=== PATIENT | female | born 1945 | race Caucasian/White ===

== ENCOUNTER 2017-07-20 06:25 | Inpatient (IN) | payer MEDICARE ==
--- NOTE | 2017-07-15 17:02 | HP ---
PREOPERATIVE HISTORY AND PHYSICAL: DATE OF SURGERY: 07/20/17 DATE OF OFFICE VISIT: 07/14/17 ATTENDING SURGEON: Dr. Ritu Chapin * (DICTATED BY STACEY GOMEZ) PROCEDURE: Right total knee replacement. CHIEF COMPLAINT: Right knee pain. HISTORY OF PRESENT ILLNESS: Neyda is a 72-year-old female, who presents to the clinic for right knee pain due to end-stage osteoarthritis. She has failed conservative measures and has therefore agreed to undergo a right total knee replacement with Dr. Chapin on 07/20/17. PAST MEDICAL HISTORY: Spinal stenosis, AFib, morbid obesity, obstructive sleep apnea, rheumatoid arthritis, osteoarthritis, hypothyroidism, hypertension. PAST SURGICAL HISTORY: Hysterectomy, appendectomy, cholecystectomy, right thumb surgery, bilateral cataracts, spinal stenosis surgery, left ankle surgery , and left total knee replacement with Dr. Chapin. The patient reports some nausea with anesthesia, but otherwise no complications. MEDICATIONS: 1. Tramadol HCl 50 mg 1 by mouth every 6 hours as needed for pain. 2. Gabapentin 300 mg 1 by mouth at bedtime. 3. Gabapentin 100 mg 1 by mouth twice a day. 4. Centrum Silver 1 by mouth every day. 5. Propafenone HCl ER 1 by mouth twice a day. 6. Cozaar 100 mg 1 by mouth daily. 7. Calcium with vitamin D 600 mg 1 by mouth daily. 8. Vitamin D 2000 International Units 1 by mouth daily. 9. Amlodipine besylate 5 mg 1 by mouth daily. 10. Cinnamon 1000 mg 1 by mouth twice a day. 11. Levothyroxine sodium 112 mcg 1 by mouth every day. 12. Tums as needed. 13. Spironolactone 25 mg 1 by mouth every day. 14. CPAP to use at night. 15. Magnesium 500 mg 1 by mouth every night. 16. Aspirin 325 mg 1 by mouth daily. 17. Atenolol 25 mg 1 by mouth daily. ALLERGIES: No known drug allergies. FAMILY HISTORY: Positive for heart disease, cancer, and hypertension. SOCIAL HISTORY: She denies tobacco or alcohol use. 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 She lives with her . She is normally an independent ambulator. REVIEW OF SYSTEMS: A 14-point review of systems was reviewed with the patient. Positive for current complaint, hypothyroidism, and hypertension. Otherwise, negative. Denies fever, chills. Denies chest pain or shortness of breath. Denies history of bleeding disorders. Denies history of DVT or PE. PHYSICAL EXAMINATION GENERAL: A 72-year-old, well-developed, well-nourished female, in no acute distress. Alert and oriented x3. Appropriate mood and affect. VITAL SIGNS: Height 61.5, weight 251, pulse 66, blood pressure 142/59, BMI 46.7. HEENT: Normocephalic, atraumatic. PERRLA. Throat: Clear. NECK: Supple. PULMONARY: Lungs are clear to auscultation bilaterally. No wheezing, rhonchi, or rales. CARDIO: Regular rate and rhythm. S1, S2. No murmurs, gallops, or rubs. No edema. ABDOMEN: Positive bowel sounds, soft, and nontender. NEURO: Alert and oriented x3. Cranial nerves grossly intact. Sensation is intact to light touch. MUSCULOSKELETAL: Right lower extremity, skin is intact. No abrasions or open wounds. Moderate effusion. Range of motion 10 to 120 degrees. Patellofemoral crepitus. Stable varus and valgus stress. Stable Kashif. Calf soft, nontender. +5/5 strength with dorsiflexion and plantar flexion. +2 DP pulse. Sensation is intact to light touch distally. DIAGNOSTIC STUDIES: Multi-view x-rays of the right knee revealed severe end- stage osteoarthritis. IMPRESSION: Right knee severe end-stage osteoarthritis. PLAN: The patient is scheduled to undergo a right total knee replacement with Dr. Chapin on 07/20/17. She is cleared by Cardiology and her PCP. She will return to the office 10 to 14 days postop for followup and suture removal. Percocet was sent for postop pain management, Colace for constipation prevention , and Coumadin for DVT prophylaxis. STACEY GOMEZ [id number]/[facility] #: [id number] [facility]
[~2017-07-20 06:25] MED LIST: Buffered Lidocaine 0.9% SYRIN* 5 ML/SYR SYRINGE INTRADERM ONE; Famotidine IV* 10 MG/ML 2 ML (20 mg) IV ONE; Metoclopramide TAB* 10 MG PO ONE; Scopolamine 1.5 mg* PATCH TRANSDERM ONE
[2017-07-20] MEDS ORDERED: Buffered Lidocaine 0.9% SYRIN* 5 ML/SYR SYRINGE ONE (07:07)
[2017-07-20] MEDS ORDERED: Metoclopramide TAB* 10 MG ONE (07:07)
[2017-07-20] MEDS ORDERED: ceFAZolin 2 GM PREMIX (*) 2 GM/50 ML BAG IVPB ONE (07:07)
[2017-07-20] MEDS ORDERED: Famotidine IV* 10 MG/ML 2 ML (20 mg) ONE (07:07)
[2017-07-20] MEDS ORDERED: Scopolamine 1.5 mg* PATCH ONE (07:08)
[2017-07-20] MEDS ORDERED: fentaNYL* 50 MCG/ML 2 ML VIAL (100 MCG VIAL) ONE ×2 (07:11→09:27)
[2017-07-20] MEDS ORDERED: Midazolam* 1 MG/ML 5 ML VIAL (5 MG) ONE (07:11)
[2017-07-20] MEDS ORDERED: KETAMINE HCL* 50 MG/ML 10 ML VIAL ONE (07:11)
[2017-07-20] MEDS ORDERED: Ondansetron INJ* 2 MG/ML VIAL ONE (07:11)
[2017-07-20] MEDS ORDERED: Ketorolac INJ* 30 MG/ML 1 ML VIAL ONE (07:11)
[2017-07-20] MEDS ORDERED: Propofol* 10 MG/ML 20 ML BTL IV PUSH ONE (07:11)
[2017-07-20] MEDS ORDERED: Lidocaine 2% PF * 5 ML VIAL ONE (07:11)
[2017-07-20] MEDS ORDERED: Dexamethasone IV* 4 MG/ML 1 ML (4 MG) ONE (07:11)
[2017-07-20] MEDS ORDERED: ROPIVACAINE 5 MG/ML 30 ML BTL (0.5%) ONE (07:11)
[2017-07-20] MEDS ORDERED: Bupivacaine 0.5% SDV PF* 30 ML VIAL ONE (07:30)
[2017-07-20] MEDS ORDERED: EPHEDrine (Pressors)* 50 MG/ML VIAL ONE (08:19)
[2017-07-20] MEDS ORDERED: fentaNYL* 50 MCG/ML 2 ML VIAL (100 MCG VIAL) IV PRN (09:36)
[2017-07-20] MEDS ORDERED: HYDROmorphone INJ* 1 MG/ML CARPUJECT SYRINGE IV PRN (09:36)
[2017-07-20] MEDS ORDERED: PROCHLORPERAZINE INJ 5 MG/ML 2 ML VIAL IV PRN (09:36)
[2017-07-20] MEDS ORDERED: DiMENhydriNATE IV* 50 MG/ML VIAL IV PUSH PRN (09:36)
[2017-07-20] MEDS ORDERED: Morphine INJ* 2 MG/ML 1 ML CARPUJECT IV PRN (09:42)
[2017-07-20] MEDS ORDERED: oxyCODONE/Acetamin 5/325 MG* TAB PO PRN (09:42)
[2017-07-20] MEDS ORDERED: Bisacodyl SUPP* 10 MG SUPP PR PRN (09:42)
[2017-07-20] MEDS ORDERED: Polyethylene Glycol 3350* 17 GM PACKET PO PRN (09:42)
[2017-07-20] MEDS ORDERED: Ondansetron INJ* 2 MG/ML VIAL IV PRN (09:42)
[2017-07-20] MEDS ORDERED: oxyCODONE TAB* 5 MG TAB PO PRN (09:42)
[2017-07-20] MEDS ORDERED: diPHENhydraMINE IV* 50 MG/ML 1 ml VIAL (BENADRYL) IV PRN (09:42)
[2017-07-20] MEDS ORDERED: Temazepam CAP* 15 MG PO PRN (09:42)
[2017-07-20] MEDS ORDERED: HYDROmorphone INJ* 1 MG/ML CARPUJECT SYRINGE ONE (10:13)
--- NOTE | 2017-07-20 11:36 | RAD ---
HISTORY: Status post right knee replacement COMPARISONS: July 14, 2017 VIEWS: 2, Frontal and lateral views of the right knee FINDINGS: BONE DENSITY: Normal. BONES: The patient is status post right knee arthroplasty. There is no hardware failure or osteolysis. JOINTS: The patient is status post right knee arthroplasty. ALIGNMENT: There is no dislocation. SOFT TISSUES: Unremarkable. OTHER FINDINGS: There is post surgical change to the soft tissues. IMPRESSION: STATUS POST RIGHT KNEE ARTHROPLASTY.
[2017-07-20] MEDS: ceFAZolin 1 GM VIAL(*) 1 GM in NS 0.9% 50 ML* 50 ML IVPB SCH (16:28)
[2017-07-20] MEDS ORDERED: Warfarin TAB(*) 6 MG PO ONE (17:00)
--- NOTE | 2017-07-20 17:46 | CONS ---
CC: Dr. Chapin; Dr. Thompson CONSULTATION REPORT: DATE OF CONSULT: 07/20/17 PHYSICIAN REQUESTING CONSULT: Dr. Ritu Chapin. PRIMARY CARE PHYSICIAN: Dr. Marlo Thompson. ATTENDING PHYSICIAN: Dr. Kelly Anderson (report dictated by Natasha Sorenson NP) REASON FOR CONSULT: Medical comanagement. HISTORY OF PRESENT ILLNESS: Ms. Pruitt is a 72-year-old female with past medical history significant for atrial fibrillation, hypertension, obstructive sleep apnea, who underwent an elective right total knee replacement with Dr. Ritu Chapin on 07/20/17. The patient states that she has been in a good state of health leading up to the surgery. The patient states she is normally in sinus rhythm and only takes aspirin for anticoagulation. The patient states her blood pressure has been controlled. Hospitalists were asked to assist the comanagement of the patient during her hospitalization. PAST MEDICAL HISTORY: Spinal stenosis, AFib, morbid obesity, obstructive sleep apnea, rheumatoid arthritis, osteoarthritis, hypothyroidism, hypertension. PAST SURGICAL HISTORY: Hysterectomy, appendectomy, cholecystectomy, bilateral cataracts, spinal stenosis surgery, left ankle surgery, and left total knee replacement with Dr. Chapin. HOME MEDICATIONS: 1. Tramadol 50 mg oral every 6 hours as needed for pain. 2. Neurontin 300 mg oral at bedtime. 3. Neurontin 100 mg oral twice daily. 4. Centrum Silver 1 by mouth daily. 5. Propafenone 225 mg oral twice daily. 6. Cozaar 100 mg oral daily. 7. Calcium with vitamin D 600 mg oral daily. 8. Vitamin D 2000 International Units oral daily. 9. Norvasc 5 mg oral daily. 10. Cinnamon 1000 mg oral twice daily. 11. Synthroid 112 mcg oral daily. 12. Tums as needed. 13. Spironolactone 25 mg oral daily. 14. CPAP at night. 15. Magnesium 500 mg oral at bedtime. 16. Aspirin 325 mg oral daily. 17. Atenolol 25 mg oral daily. ALLERGIES: No known drug allergies. FAMILY HISTORY: The patient has a positive family history for heart disease, cancer, and hypertension. SOCIAL HISTORY: The patient denies any tobacco or alcohol use. 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 REVIEW OF SYSTEMS: I performed a 14-point review of systems, all the pertinent positives and negatives are mentioned in the history of present illness. The remaining review of systems is negative. PHYSICAL EXAM: Vital Signs: Temperature 98.7, heart rate 57, respiratory rate 17, blood pressure 149/ , oxygen saturation 98%. Appearance: The patient is 72- year-old female lying in bed, in no apparent distress. Head, Eyes, Ears , Nose, and Throat: Normocephalic/atraumatic. Pupils were equal and reactive to light. Extraocular movements were intact. Neck: Neck was supple. Cardiac: S1 and S2 were crisp. There were no murmurs, rubs, or gallops heard. Lungs: There was no accessory muscle use and lungs were clear to auscultation bilaterally. Abdomen was soft, nontender, and nondistended. There were decreased bowel sounds in all quadrants. Neuro: The patient was alert and oriented x3. Cranial nerves II through XII were intact. The patient moves all extremities. Lower extremities were intact to light touch. Musculoskeletal: The patient exhibited equal strength in all extremities. I did not assess the full strength of the right lower extremity due to the recent knee surgery. Psych: The patient is alert and oriented x3. DIAGNOSTIC STUDIES/LAB DATA: Preop laboratory data showed sodium 134, potassium 4.6, chloride 99, CO2 31, BUN is 13, creatinine 1.6, glucose 83. Bilirubin 1.1. Liver function tests within normal limits. White blood cell count 6.5, hemoglobin 13, platelet count 219. INR 0.86, PTT 34.7. Postoperative knee x-ray from 07/20/17, status post right knee arthroplasty. IMPRESSION: This is a 72-year-old female with past medical history significant for paroxysmal atrial fibrillation, hypertension, obstructive sleep apnea, who underwent an elective right total knee replacement with Dr. Chapin. Hospitalists were asked to assist with the management of the patient's comorbidities. ASSESSMENT AND PLAN: 1. Postop day 0 right total knee replacement. Management will be per Orthopedic Surgery. The patient has multiple medications for pain control and will have physical therapy and occupational therapy starting tomorrow morning. The patient will have a Chavarria catheter which will be discontinued on postop day 1. Hemoglobin and hematocrit will be checked daily. 2. Paroxysmal atrial fibrillation. Aspirin is currently being held as the patient will be on warfarin postoperatively for DVT prophylaxis. Aspirin should be held until the patient is off warfarin and then this can be restarted. The patient remains in normal sinus rhythm and should continue on her Rythmol as well as atenolol during the hospitalization. Telemetry monitoring is not necessary at this point. 3. Hypertension. The patient's blood pressure is starting to creep up postoperatively. Her Atenolol and Norvasc will be restarted tonight with hold parameters and Cozaar will be started in the morning with hold parameters. Spironolactone will be held as she is receiving fluid and this can be restarted at discharge. 4. Hypothyroidism. Synthroid will continue. 5. Obstructive sleep apnea. The patient has brought in her CPAP to wear at night. 6. Chronic nerve pain. Neurontin will continue and the patient has other narcotics ordered, so tramadol will be held. 7. Fluids, electrolytes, and nutrition. The patient is on a regular diet, which will be advanced. 8. DVT prophylaxis. Will be per Orthopedic Surgery. She is being started on Coumadin this evening. 9. Code status is full. TIME SPENT: Time for this consultation was 50 minutes, and 25 minutes was spent with the patient discussing medications, history, and events leading up to her elective surgery. Reviewed by NATASHA SORENSON NP 07/20/2017 2100 [id number]/[facility] #: [id number] CATHLEEN
[2017-07-20] MEDS ORDERED: amLODIPine TAB* 5 MG PO SCH ×2 (18:00)
[2017-07-20] MEDS ORDERED: Atenolol TAB* 50 MG PO SCH (18:00)
[2017-07-20] MEDS: CMC:OMEGA-3 FATTY ACIDS (NF) 1,000 MG CAP PO SCH (18:13)
[2017-07-20] MEDS: Magnesium Oxide TAB* 400 MG PO SCH (18:13)
[2017-07-20] MEDS: PROPAFENONE 225 MG PO SCH (21:36)
[2017-07-20] MEDS: Magnesium Hydroxide LIQ* 30 ML UDC PO SCH (21:36)
[2017-07-20] MEDS: oxyCODONE/Acetamin 5/325 MG* TAB PO PRN (21:36)
[2017-07-20] MEDS: Docusate CAP* 100 MG PO SCH (21:36)
[2017-07-20] MEDS: CINNAMON 1000 MG PO SCH (21:36)
--- NOTE | 2017-07-20 23:12 | OP ---
DATE OF OPERATION: 07/20/17 - ROOM #347 DATE OF : 43 SURGEON: Ritu Chapin MD. EARLY CHILDHOOD TEACHER ASSISTANT: STACEY Troy. Ms. Hebert did help throughout the procedure with preparation of the leg, wound retraction, manipulation of the knee and wound closure. ANESTHESIOLOGIST: Dr. Rodney. ANESTHESIA: General with adductor nerve block. PRE-OP DIAGNOSIS: Severe end-stage degenerative osteoarthritis of the right knee joint. POST-OP DIAGNOSIS: Severe end-stage degenerative osteoarthritis of the right knee joint. OPERATIVE PROCEDURE: Right total knee arthroplasty. COMPLICATIONS: None. ESTIMATED BLOOD LOSS: 200 cc. TOURNIQUET TIME: 54 minutes. SPECIMEN: Bone and cartilage from the right knee joint sent to pathology. HARDWARE USED: This is a cemented Delcid and Nephew total knee hardware. For the femur, a size 5 right narrow Oxinium femoral component. For the tibia, a size 4 right tibial baseplate. For the insert, an 11-mm posterior stabilized articular insert, size 3/4 and for the patella, a 32-mm, 3-peg all-poly patella. BRIEF HISTORY/INDICATION: Ms. Pruitt is a 72-year-old female with years of increasingly severe right knee pain. She failed conservative treatment with antiinflammatories, pain medication, intraarticular injection and physical therapy. Radiographs showed [id number] arthritis. She elected to undergo right total knee arthroplasty due to continued pain and decreased quality of life. Informed consent was obtained from the patient. She understood the risks of the surgery included but were not limited to bleeding, infection, damage to nearby structures, continued pain, need for further surgery, intraoperative fracture, nerve palsy, hardware failure or loosening, knee stiffness, loss of motion, stroke, heart attack, blood clot and . She wished to proceed. INTRAOPERATIVE FINDINGS: The patient was found to have severe end-stage arthritis with tricompartmental loss of cartilage. She had significant osteophyte formation around the patella and medial tibial plateau. DESCRIPTION OF PROCEDURE: Ms. Pruitt was identified in the preanesthesia unit. Her right lower extremity was marked as the correct operative side. Informed consent was signed and placed in the chart. The patient was taken to the operating room and placed under general anesthesia with an adductor nerve block. A Chavarria catheter was placed. Tourniquet was placed on the right thigh. Right lower extremity was prepped and draped in the usual sterile fashion. Pre-op time-out was made to correctly identify the patient's side and site. Appropriate perioperative antibiotics were given within 1 hour of incision. Tourniquet was inflated until the tourniquet time was 54 minutes. A 12-cm midline incision was made with a 10-blade and carried down to the extensor mechanism. A new 10-blade was used to make a medial parapatellar arthrotomy in the extensor mechanism. Patella was subluxed laterally. Electrocautery was used to subperiosteally elevate the soft tissue off the superomedial tibia to the midsagittal plane. The knee was flexed up. There was a minimal slip of ACL remaining. This was sharply released. The anterior horn of the lateral meniscus was sharply released. A drill was used to enter the distal femur. Intramedullary distal femoral cutting guide was pinned onto the distal femur. Oscillating saw was used to make the appropriate distal femoral cut. External rotation guide was pinned on the distal femur and the distal femur was sized to a size 5. A size 5 multi cutting jig was placed on the distal femur. Oscillating saw was used to make the appropriate 4 chamfer cuts. Next, the PCL was sharply released. The tibial was subluxed anteriorly. Extramedullary tibial cutting guide was pinned on the proximal tibia. Oscillating saw was used to make the proximal tibial cut perpendicular to the mechanical axis of the tibia. The bone was carefully removed. The knee was brought out into full extension. There was some tightness at the medial ligaments, therefore osteophytes were carefully removed along the medial tibial plateau. Medial and lateral ligamentous balancing was satisfactory. Spacer block had good fit with the knee in extension. Flexion and extension gaps were ruled out. The knee was flexed up. Lamina heavy duty diesel mechanic was placed both medially and laterally. Any remaining meniscus was carefully removed with electrocautery. Curved osteotome was used to remove posterior osteophytes. A tibial tray and drop thao once again confirmed satisfactory tibial cut. A size 5 narrow right femoral trial was impacted onto the distal femur and had good fit. The box for the posterior stabilized implant was repaired using a reamer and box cut osteotome. Trial size 4 tibia with an 11-mm insert trial was placed and the knee was taken through a range of motion. The knee had full extension to 120 degrees of flexion with satisfactory patellofemoral tracking. The patella was everted. 9 mm of patellar bone and cartilage was successfully removed with an oscillating saw. The patella was sized to a size 32. Peg holes were drilled through the size 32 guide. A 32 trial patella was placed and the knee was taken through a range of motion. There was satisfactory patellofemoral tracking. All trials were carefully removed. The tibia was sized to a size 4. Proximal tibia was repaired with a keel punch size 4. All bony cut surfaces were copiously irrigated and dried. Final implants were cemented into place, starting with the tibia, followed by the femur and last the patella. A 11-mm insert trial was placed while the knee was brought out into full extension. The cement was allowed to fully cure. Tourniquet was turned down at 54 minutes. Once the cement had fully cured, the insert trial was removed. Any excess cement was carefully removed from around the implants and capsule. Electro-cautery was used to obtain meticulous hemostasis. The knee was copiously irrigated with sterile saline. An 11-mm posterior stabilized articular insert, size 3-4 was chosen as the final insert. This was locked into position on the tibial tray. Stability of the insert was checked and rechecked and noted to be stable. The extensor mechanism was closed using interrupted #1 Vicryl over a medium Hemovac drain. The rest of the incision was closed in a layered fashion using 0 and 2-0 Vicryl. Skin was closed using running 3-0 nylon suture. Sterile Xeroform, 4x4's, and Webril were used to cover the incision. Eric wrap and cold pack were placed over this. The patient's anesthesia was reversed without difficulty. She was taken to the PACU in stable condition. Intended weightbearing will be weightbearing as tolerated. Intended DVT prophylaxis will be Coumadin with a Lovenox bridge. [id number]/[facility] #: [id number] CATHLEEN
[2017-07-21] MEDS: ceFAZolin 1 GM VIAL(*) 1 GM in NS 0.9% 50 ML* 50 ML IVPB SCH ×2 (00:03→09:15)
[2017-07-21 05:36] LABS: Hematocrit 28 % (35-47); Hemoglobin 9.5 g/dl (12.0-16.0)
[2017-07-21] MEDS: Levothyroxine TAB* 112 MCG TAB PO SCH (05:49)
[2017-07-21 05:51] LABS: BUN/Creatinine Ratio 24.2 (8-20); Calcium 8.4 mg/dL (8.6-10.3); EGFR African American 112.9 (>60); EGFR Non-African American 87.8 (>60); Potassium 4.7 mmol/L (3.5-5.0)
--- NOTE | 2017-07-21 08:50 | PN ---
Progress Note - Progress Note Date of Service: 07/21/17 SOAP: Subjective: []Patient seen OOB in chair. Her pain is well controlled. Chavarria was removed this morning and she is urinating on her own. She is passing gas but no BM yet. Denies nausea, dizziness, chest pain, shortness of breath, R leg numbness, fever or chills. Objective: [] Vital Signs Temp 98.5 F 07/21/17 03:39 Pulse 67 07/21/17 08:03 Resp 20 07/21/17 08:03 BP 125/51 07/21/17 08:03 Pulse Ox 96 07/21/17 08:03 Intake & Output 07/20/17 07/21/17 07/21/17 18:59 06:59 18:59 Intake Total 3130 3360 Output Total 780 2300 Balance 2350 1060 Weight 250 lb 12.8 oz Intake: IV Fluids 2400 2050 ABX - CEFAZOLIN 105 LR 2400 1945 Oral 730 1310 Output: Chavarria 750 2300 Residual 30 Chavarria 16 Fr 30 Other: # Bowel Movements 0 Laboratory Last Values Hgb 9.5 g/dl (12.0-16.0) L 07/21/17 05:21 Hct 28 % (35-47) L 07/21/17 05:21 INR (Anticoag Therapy) 1.08 (0.89-1.11) 07/21/17 05:21 Sodium 130 mmol/L (133-145) L 07/21/17 05:21 Potassium 4.7 mmol/L (3.5-5.0) 07/21/17 05:21 Chloride 100 mmol/L (101-111) L 07/21/17 05:21 Carbon Dioxide 29 mmol/L (22-32) 07/21/17 05:21 Anion Gap 1 mmol/L (2-11) L 07/21/17 05:21 BUN 16 mg/dL (6-24) 07/21/17 05:21 Creatinine 0.66 mg/dL (0.51-0.95) 07/21/17 05:21 Est GFR ( Amer) 112.9 (>60) 07/21/17 05:21 Est GFR (Non-Af Amer) 87.8 (>60) 07/21/17 05:21 BUN/Creatinine Ratio 24.2 (8-20) H 07/21/17 05:21 Glucose 124 mg/dL (70-100) H 07/21/17 05:21 Calcium 8.4 mg/dL (8.6-10.3) L 07/21/17 05:21 General: Calm, cooperative, well appearing and in no acute distress RLE: Dr Chapin removed drain this morning without complication. Dressing is CDI, no erythema surrounding the dressing site. Bilateral Lower Extremities: Calves are supple and nontender without erythema, edema or palpable cords. Negative Thanh's sign. DP and PT pulses 2+ and symmetric. Capillary refill of toes is brisk. DF/PF intact. Sensation intact distally. Assessment: []POD1 s/p Right total knee arthroplasty 07/20/17, Dr Chapin Plan: [] WBAT PT/OT Lovenox and Coumadin 8 mg today Pain control with oxycodone Plan for D/C Wednesday07/23/[address] Chapin and patient.
[2017-07-21] MEDS ORDERED: Spironolactone TAB* 25 MG PO SCH (09:00)
[2017-07-21] MEDS ORDERED: Losartan TAB* 25 MG PO SCH (09:00)
[2017-07-21] MEDS: Enoxaparin(*) 40 MG/0.4 ML SYR SUBCUT SCH (09:14)
[2017-07-21] MEDS: Vitamin THERAPEUTIC TAB PO SCH (09:15)
[2017-07-21] MEDS: Docusate CAP* 100 MG PO SCH ×2 (09:15→20:38)
[2017-07-21] MEDS: Gabapentin CAP(*) 300 MG PO SCH (09:16)
[2017-07-21] MEDS: Cholecalciferol TAB* 1000 UNITS PO SCH (09:16)
[2017-07-21] MEDS: Losartan TAB* 25 MG PO SCH (09:16)
[2017-07-21] MEDS: oxyCODONE/Acetamin 5/325 MG* TAB PO PRN ×3 (09:17→17:12)
[2017-07-21] MEDS: Magnesium Hydroxide LIQ* 30 ML UDC PO SCH ×2 (09:19→20:38)
[2017-07-21] MEDS: CALCIUM CITRATE PO SCH (09:24)
[2017-07-21] MEDS: CINNAMON 1000 MG PO SCH ×2 (09:24→20:40)
[2017-07-21] MEDS: CHOLECALCIFEROL PO SCH (09:24)
[2017-07-21] MEDS: PROPAFENONE 225 MG PO SCH ×2 (09:37→20:39)
--- NOTE | 2017-07-21 13:57 | PN ---
Subjective Date of Service: 07/21/17 Interval History: Patient seen and examined at bedside. Patient states she ambulated with PT this AM and felt slightly dizzy. She states pain controlled. She denies SOB, CP. Family History: Unchanged from Admission Social History: Unchanged from Admission Past Medical History: Unchanged from Admission Objective Active Medications: Acetaminophen (Tylenol Tab*) 650 mg PO Q4H PRN Atenolol (Tenormin Tab*) 50 mg PO QPM ELIZA Bisacodyl (Dulcolax Supp*) 10 mg LA DAILY PRN Cholecalciferol (Vitamin D Tab*) 2,000 units PO QAM ELIZA Diphenhydramine HCl (Benadryl Iv*) 25 mg IV Q6H PRN Docusate Sodium (Colace Cap*) 100 mg PO BID ELIZA Enoxaparin Sodium (Lovenox(*)) 40 mg SUBCUT Q24H ELIZA Fish Oil (Fish Oil (Nf)) 1,000 mg PO QPM ELIZA Gabapentin (Neurontin Cap(*)) 300 mg PO DAILY ELIZA Lactated Ringer's (Lactated Ringers 1000 Ml Bag*) 1,000 mls @ 100 mls/hr IV PER RATE ELIZA Lactulose (Lactulose*) 30 ml PO Q6H PRN Levothyroxine Sodium (Synthroid Tab*) 112 mcg PO QAM@0600 ELIZA Losartan Potassium (Cozaar Tab*) 100 mg PO QAM ELIZA Magnesium Hydroxide (Milk Of Magnesia Liq*) 30 ml PO BID ELIZA Magnesium Oxide (Magox 400 Tab*) 400 mg PO QPM ELIZA Morphine Sulfate (Morphine Inj (Syringe)*) 2 mg IV Q2H PRN Multivitamins (Theragran Tab*) 1 tab PO DAILY ELIZA (Calcium Citrate (630mg/500iu D 1 Tab)) 1 tab PO QAM ELIZA (Cinnamon [Cinnamon] (1,000 Mg)) 1,000 mg PO BID ELIZA Ondansetron HCl (Zofran Inj*) 4 mg IV Q6H PRN Oxycodone HCl (Roxycodone Tab*) 10 mg PO Q4H PRN Oxycodone/Acetaminophen (Percocet 5/325 Tab*) 1 tab PO Q4H PRN Oxycodone/Acetaminophen (Percocet 5/325 Tab*) 2 tab PO Q4H PRN Pharmacy Profile Note (Scopolomine Patch Remove*) 1 note PATCH OFF ONCE ONE Pharmacy Profile Note (Coumadin Daily Reminder*) 1 note FOLLOW UP 1700 ELIZA Polyethylene Glycol/Electrolytes (Miralax*) 17 gm PO DAILY PRN Propafenone HCl (Rythmol Sr (Nf)) 225 mg PO BID ELIZA Temazepam (Restoril Cap*) 15 mg PO BEDTIME PRN Warfarin Sodium (Coumadin Tab(*)) 8 mg PO ONCE@1700 ONE Vital Signs Temp Pulse Resp BP Pulse Ox 98.7 F 53 16 120/44 96 07/21/17 11:35 07/21/17 11:35 07/21/17 12:16 07/21/17 11:35 07/21/17 11:35 Oxygen Devices in Use Now: None Appearance: sitting up in bed, NAD Eyes: No Scleral Icterus, PERRLA Ears/Nose/Mouth/Throat: NL Teeth, Lips, Gums Neck: NL Appearance and Movements; NL JVP Respiratory: Symmetrical Chest Expansion and Respiratory Effort, Clear to Auscultation Cardiovascular: NL Sounds; No Murmurs; No JVD, RRR Abdominal: NL Sounds; No Tenderness; No Distention Extremities: No Edema Skin: - - R knee incision C/D/I Neurological: Alert and Oriented x 3, NL Muscle Strength and Tone Lines/Tubes/Other Access: Clean, Dry and Intact Peripheral IV Nutrition: Taking PO's Result Diagrams: 07/21/17 05:21 07/21/17 05:21 Assess/Plan/Problems-Billing Patient is a [age]y/o F w/ PMH significant for paroxysmal afib, spinal stenosis, HTN, Gavin, Rheumatoid arthritis who underwent an elective right total knee replacement with Dr. Chapin on 07/20/2017. Hospitalists were asked to assist with medical co-management. - Patient Problems (1) Status post total right knee replacement Comment: Management per Ortho. Pain control. Chavarria d/c this AM. PT/OT. Hb to 9.5 this AM. Recheck in the AM. (2) Hyponatremia Comment: Na to 130 this AM. Appears that the patient had a similar trend after her left knee replacement. Will stop IVF and recheck in the AM. (3) Afib Comment: Currently in NSR. Continue atenolol and propafenone. ASA on hold and most likey continue to be held while patient on warfarin for post-op knee DVT prophylaxis. (4) Hypertension Comment: SBP on the lower side. Hold Norvasc for now. Continue Atenolol and Cozaar with hold parameters. Hold spironolactone until discharge. (5) Hypothyroidism Comment: Continue levothyroxine. (6) GAVIN (obstructive sleep apnea) Comment: Continue home bipap. (7) DVT prophylaxis Comment: Lovenox and Warfarin (8) Full code status Status and Disposition: Inpatient for R total knee replacement. Dispo per Ortho.
[2017-07-21] MEDS ORDERED: Warfarin TAB(*) 4 MG PO ONE (17:00)
[2017-07-21] MEDS: Atenolol TAB* 50 MG PO SCH (17:06)
[2017-07-21] MEDS: CMC:OMEGA-3 FATTY ACIDS (NF) 1,000 MG CAP PO SCH (17:08)
[2017-07-21] MEDS: Magnesium Oxide TAB* 400 MG PO SCH (17:09)
[2017-07-21] MEDS: Acetaminophen TAB* 325 MG PO PRN (20:38)
[2017-07-22] MEDS: Levothyroxine TAB* 112 MCG TAB PO SCH (07:01)
[2017-07-22 07:03] LABS: Hematocrit 28 % (35-47); Hemoglobin 9.7 g/dl (12.0-16.0)
[2017-07-22 07:18] LABS: BUN/Creatinine Ratio 28.8 (8-20); Calcium 8.7 mg/dL (8.6-10.3); EGFR African American 128.5 (>60); EGFR Non-African American 99.9 (>60); Potassium 4.1 mmol/L (3.5-5.0)
--- NOTE | 2017-07-22 09:10 | PN ---
Progress Note - Progress Note Date of Service: 07/22/17 SOAP: Subjective: [] Patient seen at bedside. She complains of nausea, vomiting and diarrhea. Pain is well controlled. No chest pain, shortness of breath, dizziness, leg numbness, fever or chills. She is having BMs and urinating. Objective: []General: Calm, cooperative, no acute distress. RLE: Dressing CDI after being changed by Dr. Chapin this morning without noted sign of infection or complication. Bilateral Lower extremities: Calves are supple and nontender without erythema, edema or palpable cords. Negative ulises's sign. DF/PF intact. DP/PT pulses 2+ and symmetric. Sensation intact distally. Assessment: []POD 2 s/p Right total knee arthroplasty, Dr. Chapin Plan: []WBAT PT/OT Scopalamine patch and reglan ordered for nausea Lovenox, Coumadin 6 mg today Hospitalists co-managing (hyponatremia, diarrhea, nausea) Plan for d/c 07/23 Vital Signs Temp 98.0 F 07/22/17 07:17 Pulse 62 07/22/17 07:17 Resp 16 07/22/17 07:17 BP 144/55 07/22/17 07:17 Pulse Ox 96 07/22/17 07:17 Intake & Output 07/21/17 07/22/17 07/22/17 18:59 06:59 18:59 Intake Total 1149 Output Total 750 700 200 Balance 399 -700 -200 Intake: IV Fluids 315 LR 315 IVPB 59 ABX - CEFAZOLIN 59 Oral 775 Output: Urine 750 700 200 Other: # Bowel Movements 1 1 Estimated Stool Amount Small Medium Laboratory Last Values Hgb 9.7 g/dl (12.0-16.0) L 07/22/17 06:20 Hct 28 % (35-47) L 07/22/17 06:20 INR (Anticoag Therapy) 1.45 (0.89-1.11) H 07/22/17 06:20 Sodium 125 mmol/L (133-145) L 07/22/17 06:20 Potassium 4.1 mmol/L (3.5-5.0) 07/22/17 06:20 Chloride 93 mmol/L (101-111) L 07/22/17 06:20 Carbon Dioxide 29 mmol/L (22-32) 07/22/17 06:20 Anion Gap 3 mmol/L (2-11) 07/22/17 06:20 BUN 17 mg/dL (6-24) 07/22/17 06:20 Creatinine 0.59 mg/dL (0.51-0.95) 07/22/17 06:20 Est GFR ( Amer) 128.5 (>60) 07/22/17 06:20 Est GFR (Non-Af Amer) 99.9 (>60) 07/22/17 06:20 BUN/Creatinine Ratio 28.8 (8-20) H 07/22/17 06:20 Glucose 124 mg/dL (70-100) H 07/22/17 06:20 Calcium 8.7 mg/dL (8.6-10.3) 07/22/17 06:20
[2017-07-22] MEDS ORDERED: Scopolamine 1.5 mg* PATCH TRANSDERM SCH (10:00)
[2017-07-22] MEDS ORDERED: Ondansetron INJ* 2 MG/ML VIAL IV PRN (10:26)
[2017-07-22] MEDS ORDERED: Metoclopramide IV* 5 MG/ML 2 ML VIAL IV PRN (13:08)
[2017-07-22] MEDS: CHOLECALCIFEROL PO SCH (13:43)
[2017-07-22] MEDS: CALCIUM CITRATE PO SCH (13:43)
[2017-07-22] MEDS: CINNAMON 1000 MG PO SCH ×2 (13:43→21:33)
[2017-07-22] MEDS: Magnesium Hydroxide LIQ* 30 ML UDC PO SCH ×2 (13:43→21:33)
[2017-07-22] MEDS: Acetaminophen TAB* 325 MG PO PRN ×2 (13:50→21:32)
[2017-07-22] MEDS: Enoxaparin(*) 40 MG/0.4 ML SYR SUBCUT SCH (13:53)
[2017-07-22] MEDS: Gabapentin CAP(*) 300 MG PO SCH (14:52)
[2017-07-22] MEDS: PROPAFENONE 225 MG PO SCH ×2 (14:52→21:32)
[2017-07-22] MEDS: Losartan TAB* 25 MG PO SCH (14:53)
[2017-07-22] MEDS: Docusate CAP* 100 MG PO SCH ×2 (14:59→21:33)
[2017-07-22] MEDS: Vitamin THERAPEUTIC TAB PO SCH (14:59)
[2017-07-22] MEDS: Cholecalciferol TAB* 1000 UNITS PO SCH (14:59)
--- NOTE | 2017-07-22 15:37 | PN ---
Subjective Date of Service: 07/22/17 Interval History: Patient seen and examined at bedside. Denies lightheadedness or dizziness, fever , chills, shortness of breath, chest discomfort, vomiting. Pt reports nausea, dry heaves, diarrhea. Reports that pain is controlled. Pt reports feeling "dry and thirsty", and drinking more water here in the hospital then she does at home because of the dryness. Family History: Unchanged from Admission Social History: Unchanged from Admission Past Medical History: Unchanged from Admission Objective Active Medications: Acetaminophen (Tylenol Tab*) 650 mg PO Q4H PRN Reason: PAIN OR TEMPERATURE Atenolol (Tenormin Tab*) 50 mg PO QPM [facility] Bisacodyl (Dulcolax Supp*) 10 mg OK DAILY PRN Reason: constipation Cholecalciferol (Vitamin D Tab*) 2,000 units PO QAM [facility] Diphenhydramine HCl (Benadryl Iv*) 25 mg IV Q6H PRN Reason: itching Docusate Sodium (Colace Cap*) 100 mg PO BID [facility] Enoxaparin Sodium (Lovenox(*)) 40 mg SUBCUT Q24H [facility] Fish Oil (Fish Oil (Nf)) 1,000 mg PO QPM [facility] Gabapentin (Neurontin Cap(*)) 300 mg PO DAILY [facility] Lactulose (Lactulose*) 30 ml PO Q6H PRN Reason: constipation Levothyroxine Sodium (Synthroid Tab*) 112 mcg PO QAM@0600 [facility] Losartan Potassium (Cozaar Tab*) 100 mg PO QAM [facility] Magnesium Hydroxide (Milk Of Magnesia Liq*) 30 ml PO BID [facility] Magnesium Oxide (Magox 400 Tab*) 400 mg PO QPM [facility] Metoclopramide HCl (Reglan Iv*) 10 mg IV Q6H PRN Reason: NAUSEA/VOMITING Morphine Sulfate (Morphine Inj (Syringe)*) 2 mg IV Q2H PRN Reason: PAIN Multivitamins (Theragran Tab*) 1 tab PO DAILY ELIZA (Calcium Citrate (630mg/500iu D 1 Tab)) 1 tab PO QAM [facility] (Cinnamon [Cinnamon] (1,000 Mg)) 1,000 mg PO BID [facility] Ondansetron HCl (Zofran Inj*) 4 mg IV Q4H PRN Reason: nausea Oxycodone HCl (Roxycodone Tab*) 10 mg PO Q4H PRN Reason: PAIN - SEVERE Oxycodone/Acetaminophen (Percocet 5/325 Tab*) 1 tab PO Q4H PRN Reason: PAIN Oxycodone/Acetaminophen (Percocet 5/325 Tab*) 2 tab PO Q4H PRN Reason: PAIN Pharmacy Profile Note (Scopolomine Patch Remove*) 1 note PATCH OFF ONCE ONE Stop: 07/23/17 06:01 Pharmacy Profile Note (Coumadin Daily Reminder*) 1 note FOLLOW UP 1700 [facility] Pharmacy Profile Note (Scopolomine Patch Remove*) 1 note PATCH OFF Q72H [facility] Polyethylene Glycol/Electrolytes (Miralax*) 17 gm PO DAILY PRN Reason: Constipation Propafenone HCl (Rythmol Sr (Nf)) 225 mg PO BID [facility] Scopolamine (Transderm-Scop 1.5 Mg Patch*) 1 patch TRANSDERM Q72H [facility] Temazepam (Restoril Cap*) 15 mg PO BEDTIME PRN Reason: INSOMNIA Warfarin Sodium (Coumadin Tab(*)) 6 mg PO ONCE@1700 [facility] Stop: 07/22/17 17:01 Vital Signs 07/21/17 07/21/17 07/21/17 16:07 16:13 17:12 Temperature 98.2 F Pulse Rate 62 Respiratory 16 20 Rate Blood Pressure 101/35 112/48 (mmHg) O2 Sat by Pulse 96 Oximetry 07/21/17 07/21/17 07/21/17 19:12 19:15 20:00 Temperature 98.3 F Pulse Rate 60 Respiratory 18 16 18 Rate Blood Pressure 122/44 (mmHg) O2 Sat by Pulse 96 Oximetry 07/22/17 07/22/17 07/22/17 00:00 00:01 03:25 Temperature 97.5 F 98.6 F Pulse Rate 59 62 Respiratory 16 16 Rate Blood Pressure 119/39 151/47 (mmHg) O2 Sat by Pulse 93 93 95 Oximetry 07/22/17 07/22/17 07/22/17 07:17 08:00 11:36 Temperature 98.0 F 97.9 F Pulse Rate 62 64 Respiratory 16 16 16 Rate Blood Pressure 144/55 151/60 (mmHg) O2 Sat by Pulse 96 96 96 Oximetry Oxygen Devices in Use Now: None, CPAP Appearance: NAD, laying in bed Ears/Nose/Mouth/Throat: Mucous Membranes Moist Respiratory: Symmetrical Chest Expansion and Respiratory Effort, Clear to Auscultation Cardiovascular: NL Sounds; No Murmurs; No JVD, RRR Abdominal: NL Sounds; No Tenderness; No Distention Extremities: - - Mild right LE edema Skin: - - Dressing to right knee clean, dry and intact. Neurological: Alert and Oriented x 3, NL Muscle Strength and Tone Lines/Tubes/Other Access: Clean, Dry and Intact Peripheral IV - site benign Nutrition: Taking PO's Result Diagrams: 07/22/17 06:20 07/22/17 06:20 Assess/Plan/Problems-Billing Ms. Hamilton is a [age]y/o F w/ PMH significant for paroxysmal afib, spinal stenosis, HTN, Gavin, Rheumatoid arthritis who underwent an elective right total knee replacement with Dr. Chapin on 07/20/2017. Hospitalists were asked to assist with medical co-management. - Patient Problems (1) Status post total right knee replacement Code(s): Z96.651 - PRESENCE OF RIGHT ARTIFICIAL KNEE JOINT SNOMED Code(s): 1269699452375 Comment: - POD #2, Management per Ortho. - HH stable - Continue pain control, PT/OT. (2) Hyponatremia Code(s): E87.1 - HYPO-OSMOLALITY AND HYPONATREMIA SNOMED Code(s): 73152548 Comment: - Na to 125 this AM. - Appears that the patient had a similar trend after her left knee replacement. - Suspect this may be secondary to increased water intake (hypervolemia) vs SIADH. - Limit free water to 1500 ml and recheck NA+ in the AM. (3) Afib Code(s): I48.91 - UNSPECIFIED ATRIAL FIBRILLATION SNOMED Code(s): 45985513 Comment: - Heart rate regular. - Continue atenolol and propafenone. - ASA on hold and will most likey continue to be held while patient on warfarin for post-op knee DVT prophylaxis. (4) Hypertension Code(s): I10 - ESSENTIAL (PRIMARY) HYPERTENSION SNOMED Code(s): 22505836 Comment: - SBP 110's-150's. - Resume Norvasc. Continue Atenolol and Cozaar with hold parameters. - Hold spironolactone until discharge. (5) Hypothyroidism Code(s): E03.9 - HYPOTHYROIDISM, UNSPECIFIED SNOMED Code(s): 39733439 Comment: - Continue levothyroxine. (6) GAVIN (obstructive sleep apnea) Code(s): G47.33 - OBSTRUCTIVE SLEEP APNEA (ADULT) (PEDIATRIC) SNOMED Code(s): 94073465 Comment: - Continue home CPAP. (7) DVT prophylaxis Code(s): JYQ1962 - SNOMED Code(s): 711966856 Comment: - Lovenox bridge to Warfarin (8) Full code status Code(s): Z78.9 - OTHER SPECIFIED HEALTH STATUS SNOMED Code(s): 670176035 Status and Disposition: Inpatient for R total knee replacement. Dispo per Ortho.
[2017-07-22] MEDS ORDERED: Warfarin TAB(*) 6 MG PO SCH (17:00)
[2017-07-22] MEDS: Atenolol TAB* 50 MG PO SCH (17:14)
[2017-07-22] MEDS: Magnesium Oxide TAB* 400 MG PO SCH (17:14)
[2017-07-22] MEDS: CMC:OMEGA-3 FATTY ACIDS (NF) 1,000 MG CAP PO SCH (17:14)
[2017-07-23] MEDS: Levothyroxine TAB* 112 MCG TAB PO SCH (05:28)
[2017-07-23] MEDS ORDERED: Scopolamine PATCH Remove* 1 NOTE MISC PATCH OFF ONE (06:00)
[2017-07-23 06:24] LABS: Hematocrit 27 % (35-47); Hemoglobin 9.7 g/dl (12.0-16.0)
[2017-07-23 06:40] LABS: BUN/Creatinine Ratio 16.7 (8-20); Calcium 8.7 mg/dL (8.6-10.3); EGFR African American 142.3 (>60); EGFR Non-African American 110.7 (>60)
--- NOTE | 2017-07-23 07:38 | PN ---
Progress Note - Progress Note Date of Service: 07/23/17 SOAP: Subjective: Pt. is alert, reports nausea is better, wants to go home today. Objective: RLE - dressing c/d/i. distally nvi. calf soft. Vital Signs: Temp Pulse Resp BP Pulse Ox 98.7 F 61 17 136/67 94 07/23/17 07:15 07/23/17 07:15 07/23/17 07:15 07/23/17 07:15 07/23/17 07:15 Laboratory Results - last 24 hr 07/23/17 07/23/17 07/23/17 06:00 06:00 06:01 Hgb 9.7 L Hct 27 L INR (Anticoag Therapy) 2.00 H Sodium 127 L Potassium 4.0 Chloride 95 L Carbon Dioxide 29 Anion Gap 3 BUN 9 Creatinine 0.54 Est GFR ( Amer) 142.3 Est GFR (Non-Af Amer) 110.7 BUN/Creatinine Ratio 16.7 Glucose 102 H Calcium 8.7 Assessment: 72 yo F pod 3 s/p RTKA Plan: hyponatremia improving, nausea improving ortho stable - will d/c to home today with vns if hospitalist team approves wbat pt.ot d/c lovenox and cont coumadin
[2017-07-23] MEDS: Gabapentin CAP(*) 300 MG PO SCH (08:16)
[2017-07-23] MEDS: PROPAFENONE 225 MG PO SCH (08:16)
[2017-07-23] MEDS: Cholecalciferol TAB* 1000 UNITS PO SCH (08:16)
[2017-07-23] MEDS: Vitamin THERAPEUTIC TAB PO SCH (08:16)
[2017-07-23] MEDS: Losartan TAB* 25 MG PO SCH (08:16)
[2017-07-23] MEDS: CHOLECALCIFEROL PO SCH (08:17)
[2017-07-23] MEDS: CALCIUM CITRATE PO SCH (08:17)
[2017-07-23] MEDS: Magnesium Hydroxide LIQ* 30 ML UDC PO SCH (08:17)
[2017-07-23] MEDS: Docusate CAP* 100 MG PO SCH (08:17)
[2017-07-23] MEDS: CINNAMON 1000 MG PO SCH (08:17)
[2017-07-23] MEDS ORDERED: amLODIPine TAB* 5 MG PO SCH (09:00)
[2017-07-23] MEDS: Acetaminophen TAB* 325 MG PO PRN (09:12)
[2017-07-23 11:40] VITALS: BP 144/50
--- NOTE | 2017-07-23 23:41 | PN ---
Subjective Date of Service: 07/23/17 Interval History: Patient seen and examined at bedside. Denies fever, chills, shortness of breath , chest discomfort, N/V/D. Pt states that her pain is controlled. Family History: Unchanged from Admission Social History: Unchanged from Admission Past Medical History: Unchanged from Admission Objective Vital Signs 07/23/17 07/23/17 07/23/17 00:34 00:37 03:17 Temperature 97.9 F 99.6 F Pulse Rate 56 62 Respiratory 16 17 Rate Blood Pressure 173/44 135/44 147/50 (mmHg) O2 Sat by Pulse 94 92 Oximetry 07/23/17 07/23/17 07/23/17 07:15 07:25 08:16 Temperature 98.7 F Pulse Rate 61 Respiratory 17 16 16 Rate Blood Pressure 136/67 (mmHg) O2 Sat by Pulse 94 Oximetry 07/23/17 07/23/17 10:15 11:29 Temperature 98.7 F Pulse Rate 56 Respiratory 16 16 Rate Blood Pressure 144/50 (mmHg) O2 Sat by Pulse 97 Oximetry Oxygen Devices in Use Now: None, CPAP Appearance: NAD, sitting up in a chair Ears/Nose/Mouth/Throat: Mucous Membranes Moist Respiratory: Symmetrical Chest Expansion and Respiratory Effort, Clear to Auscultation Cardiovascular: NL Sounds; No Murmurs; No JVD, RRR Abdominal: NL Sounds; No Tenderness; No Distention Extremities: - - Mild edema to right LE Skin: - - Dressing to right LE clean, dry and intact. Neurological: Alert and Oriented x 3, NL Muscle Strength and Tone Nutrition: Taking PO's Result Diagrams: 07/23/17 06:00 07/23/17 06:00 Assess/Plan/Problems-Billing Ms. Hamilton is a [age]y/o F w/ PMH significant for paroxysmal afib, spinal stenosis, HTN, [place], Rheumatoid arthritis who underwent an elective right total knee replacement with Dr. Chapin on 07/20/2017. Hospitalists were asked to assist with medical co-management. - Patient Problems (1) Status post total right knee replacement Code(s): Z96.651 - PRESENCE OF RIGHT ARTIFICIAL KNEE JOINT SNOMED Code(s): 2370440814647 Comment: - POD #3, Management per Ortho. - HH stable - Continue pain control, bowel regimen, PT/OT. (2) Hyponatremia Code(s): E87.1 - HYPO-OSMOLALITY AND HYPONATREMIA SNOMED Code(s): 23565106 Comment: - Na to 127 this AM. - Appears that the patient had a similar trend after her left knee replacement. - Suspect this may be secondary to increased water intake (hypervolemia) vs SIADH. - Limit free water to 1500 ml. - Recheck NA next week and follow-up with PCP. (3) Afib Code(s): I48.91 - UNSPECIFIED ATRIAL FIBRILLATION SNOMED Code(s): 00898445 Comment: - Heart rate regular. - Continue atenolol and propafenone. - ASA on hold and will most likey continue to be held while patient on warfarin for post-op knee DVT prophylaxis. (4) Hypertension Code(s): I10 - ESSENTIAL (PRIMARY) HYPERTENSION SNOMED Code(s): 56234324 Comment: - SBP 130's-170's. - Continue Atenolol and Cozaar with hold parameters, and Norvasc. - Resume spironolactone at discharge. (5) Hypothyroidism Code(s): E03.9 - HYPOTHYROIDISM, UNSPECIFIED SNOMED Code(s): 02169180 Comment: - Continue levothyroxine. (6) [place] (obstructive sleep apnea) Code(s): G47.33 - OBSTRUCTIVE SLEEP APNEA (ADULT) (PEDIATRIC) SNOMED Code(s): 62394505 Comment: - Continue home CPAP. (7) DVT prophylaxis Code(s): XLK2380 - SNOMED Code(s): 661979336 Comment: - Warfarin per Ortho (8) Full code status Code(s): Z78.9 - OTHER SPECIFIED HEALTH STATUS SNOMED Code(s): 803903227 Status and Disposition: Inpatient for R total knee replacement. Dispo per Ortho. Pt being discharged to home today.
--- NOTE | 2017-07-24 04:06 | DS ---
AMENDED REPORT NOW INCLUDES COSIGNER DESIGNATION - ESIGNED BEFORE ADJUSTMENT DISCHARGE SUMMARY: DATE OF ADMISSION: 07/20/17 DATE OF DISCHARGE: 07/23/17 SURGEON: Dr. Ritu Chapin * (DICTATED BY STACEY DALTON) PRINCIPAL DIAGNOSIS: Severe end-stage osteoarthritis of the right knee. DISCHARGE DIAGNOSIS: Severe end-stage osteoarthritis of the right knee. HISTORY OF PRESENT ILLNESS: Ms. Pruitt is a 72-year-old female with complaints of right knee pain secondary to severe end-stage osteoarthritis. She has failed conservative management and has elected to proceed with a right total knee arthroplasty. HOSPITAL COURSE: Ms. Pruitt is a 72-year-old female, she was admitted electively to the hospital on 07/20/17 and underwent a right total knee arthroplasty. She tolerated the procedure well with no complications. Postoperatively, she was placed on Lovenox and Coumadin for DVT prophylaxis. On postoperative day 1, her H and H was 9.5 and 28; postoperative day 2, 9.7 and 28; on postoperative day 3, 9.7 and 27. Her INR went from 1.08 on postop day 1 to 2 on postoperative day 3. There was a consult to the hospitalist group for medical management, who was monitoring her sodium levels for hyponatremia. She was placed on 1500 mL a day fluid restriction. At the time of discharge, on 07/23/17, she was afebrile and her vital signs were stable. She was discharged home. DISCHARGE MEDICATIONS: 1. Percocet 5/325 one to two tabs every 4 to 6 hours as needed for pain. 2. Colace 2 to 3 tabs daily. 3. Coumadin nightly at 5 p.m. 4. Norvasc 5 mg daily. 5. Atenolol 50 mg daily. 6. Vitamin D 2000 units daily. 7. Fish oil 1000 mg daily. 8. Gabapentin 300 mg daily. 9. Levothyroxine 112 mcg daily. 10. Losartan 100 mg daily. 11. Magnesium oxide 400 mg daily. 12. Daily multivitamin. 13. Calcium. PHYSICAL EXAMINATION: Upon discharge, she was afebrile, vital signs were stable. The incision was clean and dry. She was ambulating well with the aid of a walker. She was distally neurovascularly intact. DISCHARGE INSTRUCTIONS: She was discharged home. She is weightbearing as tolerated. She is placed on 1500 mL a day fluid restriction. She has an appointment next week to follow up with her primary care physician, Dr. Thompson. She is scheduled to have a BMP checked Wednesday with [facility] along with her INR. She is going home on Coumadin 2 mg tabs. Her Coumadin dosing for the next 3 days is 2 mg at night, 2 mg Wednesday night, 2 mg Wednesday night. She will follow up with Dr. Chapin in 2 weeks. We asked her to call the office with any questions or concerns. STACEY DALTON [id number]/[facility] #: [id number] CATHLEEN
[2017-07-25] MEDS ORDERED: Scopolamine PATCH Remove* 1 NOTE MISC PATCH OFF SCH (10:00)
== END 2017-07-23 15:15 | disposition home health service (06) | DRG 470 ==
LOC: AA 06:25 → SSU 12:57
PROVIDERS: ADMIT Orthopaedic Surgery Adult Reconstructive Orthopaedic Surgery; ATTEND Orthopaedic Surgery Adult Reconstructive Orthopaedic Surgery
PROC: 0SRC0J9 Replacement of Right Knee Joint with Synthetic Substitute, Cemented, Open Approach (ICD-10-PCS; principal; 2017-07-20 08:15)
DX: M17.11 Unilateral primary osteoarthritis, right knee (principal); E66.01 Morbid (severe) obesity due to excess calories; M06.9 Rheumatoid arthritis, unspecified; I48.0 Paroxysmal atrial fibrillation; E87.1 Hypo-osmolality and hyponatremia; G47.33 Obstructive sleep apnea (adult) (pediatric); E03.9 Hypothyroidism, unspecified; I10 Essential (primary) hypertension; Z96.652 Presence of left artificial knee joint; R11.0 Nausea; R19.7 Diarrhea, unspecified; G89.29 Other chronic pain; E78.5 Hyperlipidemia, unspecified; M25.761 Osteophyte, right knee; Z68.42 Body mass index [BMI] 45.0-49.9, adult; Z79.01 Long term (current) use of anticoagulants; Z90.49 Acquired absence of other specified parts of digestive tract; Z98.42 Cataract extraction status, left eye; Z98.41 Cataract extraction status, right eye; Z90.710 Acquired absence of both cervix and uterus; Z82.49 Family history of ischemic heart disease and other diseases of the circulatory system; Z80.9 Family history of malignant neoplasm, unspecified
CPT/HCPCS: 36415; 80048; 85014; 85018; 85610; A9270-GY; C1776; J0690; J1100; J1170; J1650; J1885; J2250; J2405; J2704; J2765; J2795; J3010

== ENCOUNTER 2019-03-02 11:04 | Emergency (ER) | payer MEDICARE ==
--- NOTE | 2019-03-02 11:46 | ED ---
Palpitations / Dysrhythmia - HPI Summary HPI Summary: This patient is a 74 year old F presenting to [facility] with a chief complaint of an erratic HR and lightheadedness. She reports feeling better after sitting in the waiting room. Her heart started beating irregularly while waiting for her husbands blood test. She reports that she felt skipped beat which are still present. She had gas during her onset. She denies any associated pain. She reports no fever, N/V/D, CP, abdominal pain, diaphoresis, rashes, SOB, cough, or headache. Her symptoms are aggravated by nothing and alleviated by nothing. She has a Hx for AFIB and takes Propafenone. Her counter waiter is Dr. Weber. - History of Current Complaint Chief Complaint: EDDysrhythmPalp Time Seen by Provider: 03/02/19 11:39 Hx Obtained From: Patient Onset/Duration: Sudden Onset, Lasting Hours, Still Present Timing: Constant Severity Initially: Moderate Severity Currently: Moderate Character: Irregular, Skipped Beats Aggravating: Nothing Alleviating: Nothing Associated Signs & Symptoms: Negative - fever, N/V/D, CP, abdominal pain, diaphoresis, rashes, SOB, cough, or headache., Lightheadedness - Allergy/Home Medications Allergies/Adverse Reactions: Allergies Allergy/AdvReac Type Severity Reaction Status Date / Time No Known Allergies Allergy Verified 03/02/19 11:13 Home Medications: Home Medications proPAFENone TAB* [Rythmol*] 225 mg PO BID 03/02/19 [History Confirmed 03/02/19] PMH/Surg Hx/FS Hx/Imm Hx Previously Healthy: No Endocrine/Hematology History: Reports: Hx Thyroid Disease - HYPOTHYROID Denies: Hx Diabetes Cardiovascular History: Reports: Hx Hypertension, Other Cardiovascular Problems/ Disorders - HX A FIB-SEES DR. WEBER FOR Denies: Hx Congestive Heart Failure, Hx Pacemaker/ICD Respiratory History: Reports: Hx Pneumonia, Hx Sleep Apnea - wears CPAP Denies: Hx Asthma, Hx Chronic Obstructive Pulmonary Disease (COPD), Other Respiratory Problems/Disorders GI History: Denies: Hx Ulcer, Other GI Disorders History: Denies: Hx Renal Disease Musculoskeletal History: Reports: Hx Arthritis - BACK, KNEES, Hx Back Problems - spinal stenosis Denies: Hx Scoliosis Sensory History: Reports: Hx Cataracts - surgery 2005 Denies: Hx Contacts or Glasses, Hx Hearing Aid Opthamlomology History: Reports: Hx Cataracts - surgery 2005 Denies: Hx Contacts or Glasses Neurological History: Reports: Other Neuro Impairments/Disorders - PAIN CLINIC PT. Psychiatric History: Denies: Hx Panic Disorder - Cancer History Hx Chemotherapy: No Hx Radiation Therapy: No - Surgical History Surgery Procedure, Year, and Place: Hysterectomy, [place], [facility] [place]endectomy,1999 , [facility] [place]. CHOLECYSTECTOMY, 2008, [facility] [place] Tendon transfer right index finger to the RIGHT thumb (EIP TO EPL) IN 2010, [facility] [place]. SONAL Cataracts, 2005, [facility] [place]. Fatty tumor removed from Rt thumb. 1985, [facility] [place]. LEFT ANKLE RECONSTRUCTION, 09/2015, [facility] - W/ SCREW. LEFT KNEE REPLACEMENT 02/2016. RIGHT KNEE REPLACEMENT 07/2017. LAMINECTOMY - L1-L5 ( NO METAL) 2015 Hx Anesthesia Reactions: Yes - NAUSEA - Immunization History Date of Tetanus Vaccine: Up to date Date of Influenza Vaccine: Fall 2013 Infectious Disease History: No Infectious Disease History: Reports: Hx of Known/Suspected MRSA - finger Denies: Hx Hepatitis, Hx Human Immunodeficiency Virus (HIV), Traveled Outside the [place] in Last 30 Days - Social History Alcohol Use: Occasionally Alcohol Amount: 1 PER MONTH Hx Substance Use: No Substance Use Type: Reports: None Hx Tobacco Use: No Smoking Status (MU): Never Smoked Tobacco Have You Smoked in the Last Year: No Review of Systems Negative: Fever, Skin Diaphoresis Positive: Palpitations - irregular and skipped beats. Negative: Chest Pain Negative: Shortness Of Breath, Cough Negative: Abdominal Pain, Vomiting, Diarrhea, Nausea Negative: Rash Neurological: Other - lightheadedness Negative: Headache All Other Systems Reviewed And Are Negative: Yes Physical Exam - Summary Physical Exam Summary: Appearance: Well-appearing, Well-nourished, lying in bed comfortably Skin: Warm, dry, no obvious rash Eyes: sclera anicteric, no conjunctival pallor ENT: mucous membranes moist, pharynx appears normal Neck: Supple, nontender Respiratory: Clear to auscultation, no signs of respiratory distress Cardiovascular: Pulse has an occasional early beat followed by a pause . No murmurs. Normal distal pulses in tibial and radial bilaterally. Abdomen: Soft, nontender, normal active bowel sounds present Musculoskeletal: Normal, Strength/ROM Intact Neurological: A&Ox3, awake and alert, mentation is normal, speech is fluent and appropriate Psychiatric: affect is normal, does not appear anxious or depressed Triage Information Reviewed: Yes Vital Signs On Initial Exam: Initial Vitals Temp Pulse Resp BP Pulse Ox 97.1 F 70 18 186/70 97 03/02/19 11:10 03/02/19 11:10 03/02/19 11:10 03/02/19 11:10 03/02/19 11:10 Vital Signs Reviewed: Yes Diagnostics - Vital Signs Vital Signs Temp Pulse Resp BP Pulse Ox 03/02/19 11:31 17 03/02/19 11:10 97.1 F 70 18 186/70 97 - Laboratory Result Diagrams: 03/02/19 11:33 03/02/19 11:33 Lab Statement: Any lab studies that have been ordered have been reviewed, and results considered in the medical decision making process. - EKG 1100 Cardiac Rate: NL - 70 1108 Cardiac Rate: NL - 70 EKG Rhythm: Sinus Rhythm - 70 BPM Ectopy: PVCs Summary of EKG Findings: NSR at 70 BPM with Frequent PVCs that are unifocal. Interpreted by Dr. Norris at 1108 03/02/19. Re-Evaluation - Re-Evaluation First Eval Re-Evaluation Time: 12:00 Change: Unchanged Comment: Pt was informed of the consult with Dr. Weber and is agreeable to the plan of care. Course/Dx - Course Course Of Treatment: This patient is a 74 year old F presenting to [facility] with a chief complaint of an erratic HR and lightheadedness. She reports feeling better after sitting in the waiting room. Her heart started beating irregularly while waiting for her husbands blood test. Upon her PE the pt was found to have a pulse that has an occasional early beat followed by a pause. Her EKG shows a NSR at 70 BPM and Frequent PVCs that are unifocal at 1108. Dr. Weber, Toucher Up, was contacted at 11:57 about the pt and he recommended that as long as her labs are within normal values she can be discharged and follow up at his office. Her labs came back negative and the pt will be discharged and instructed to follow up with Dr. Weber per the discharge plan with a Dx of frequent PVCs. - Diagnoses Provider Diagnoses: Frequent PVCs - Physician Notifications Discussed Care Of Patient With: Alfred Weber Time Discussed With Above Provider: 11:57 Instructed by Provider To: Have Pt Call For Appt. - Dr. Weber was contacted at 11:57 about the pt and he recommended that as long as her labs are within normal values she can be discharged and follow up at his office. Discharge - Sign-Out/Discharge Documenting (check all that apply): Patient Departure - discharge Patient Received Moderate/Deep Sedation with Procedure: No - Discharge Plan Condition: Stable Disposition: HOME Patient Education Materials: Heart Palpitations (ED) Referrals: Alfred Weber MD [Medical Doctor] - 3 Days (if the palpitations persist) Additional Instructions: Over the weekend I would recommend avoiding any type of stimulants such as caffeine and see if these go away. If they are persisting, contact Dr. Weber's office for further followup and instructions. - Billing Disposition and Condition Condition: STABLE Disposition: Home - Attestation Statements Document Initiated by Abdiase: Yes Documenting Scribe: Corbin Rainey Provider For Whom Arsalanibe is Documenting (Include Credential): Andriy Norris MD Scribe Attestation: Corbin Mccann, scribed for Andriy Norris MD on 03/02/19 at 1312. Scribe Documentation Reviewed: Yes Provider Attestation: The documentation as recorded by the Corbin merino accurately reflects the service I personally performed and the decisions made by me, Andriy Norris MD Status of Scribe Document: Viewed
[2019-03-02 12:02] LABS: ABS Eosinophils 0.3 10^3/ul (0-0.6); ABS Lymphocytes 1.1 10^3/ul (1.0-4.8); ABS Monocytes 0.9 10^3/ul (0-0.8); ABS Neutrophils 3.6 10^3/ul (1.5-7.7); Eosinophil % 5.4 %; Hematocrit 37 % (35-47); Hemoglobin 12.7 g/dL (12.0-16.0); Lymphocyte % 18.1 %; Mean Corpuscular HGB Conc 35 g/dL (31-36); Mean Corpuscular Hemoglobin 31 pg (27-31); Mean Corpuscular Volume 90 fL (80-97); Mean Platelet Volume 8.7 fL (7.4-10.4); Platelet Count 188 10^3/uL (150-450); Red Blood Count 4.08 10^6 /uL (3.70-4.87); Red Cell Distribution Width 13 % (10-15); White Blood Count 5.8 10^3/uL (3.5-10.8)
[2019-03-02 12:08] LABS: INR 0.96 (0.82-1.09)
[2019-03-02 12:16] LABS: Albumin 3.8 g/dL (3.2-5.2); Albumin/Globulin Ratio 1.4 (1-3); BUN/Creatinine Ratio 24.6 (8-20); Calcium 9.6 mg/dL (8.6-10.3); EGFR African American 100.4 (>60); EGFR Non-African American 82.9 (>60); Globulin 2.8 g/dL (2-4); Potassium 4.2 mmol/L (3.5-5.0); Total Bilirubin 1.1 mg/dL (0.2-1.0); Total Protein 6.6 g/dL (6.4-8.9)
[2019-03-02 13:17] VITALS: BP 154/77
== END 2019-03-02 13:19 | disposition home or self-care (01) ==
LOC: ED 11:04
DX: I49.3 Ventricular premature depolarization (principal); I10 Essential (primary) hypertension; Z79.899 Other long term (current) drug therapy
CPT/HCPCS: 36415; 80053; 84484; 85025; 85610; 93005; 99282